=== PATIENT | female | born 1955 | race Caucasian/White ===

== ENCOUNTER 2018-02-24 06:20 | Day surgery (SDC) | payer OTHER ==
--- OUTSIDE RECORDS SUMMARY | 2018-02-24 06:24 | XMS REPORT | Clinical Summary ---
:1955 Author Organization [facility] Address [address] [place] [address] Care Team Providers Name Role Phone Franklin Cruz MD Primary Care Provider Allergies No Known Allergies Current Medications Prescription Sig. Disp. Refills Start Date End Date Status atenolol (TENORMIN) 50 Take 50 mg by Active MG tablet mouth daily. furosemide (LASIX) 20 Take 20 mg by Active mg tablet mouth daily. potassium chloride Take 3 Active (KLOR-CON M20 ORAL) capsules by mouth daily. diclofenac-misoprostol Take 1 tablet Active (ARTHROTEC 75) 75-200 by mouth 2 mg-mcg EC tablet (two) times a day. esomeprazole (NexIUM) Take 40 mg by Active 40 MG capsule mouth daily before breakfast. lisinopril Take 10 mg by Active (PRINIVIL,ZESTRIL) 10 mouth daily. mg tablet spironolactone Take 25 mg by Active (ALDACTONE) 25 MG mouth daily. tablet thyroid, pork, (ARMOUR Take 300 mg by Active THYROID) 60 mg tablet mouth every other day. 5 tabs alt days, 6 tabs alt days PARoxetine mesylate Take 20 mg by Active (PEXEVA) 20 MG tablet mouth every morning. allopurinol (ZYLOPRIM) Take 400 mg by Active 100 MG tablet mouth daily. gabapentin (NEURONTIN) Take 300 mg by Active 300 mg capsule mouth 3 (three) times a day. cholecalciferol, Take 1 tablet Active vitamin D3, (VITAMIN by mouth D3) 5,000 unit tablet daily. chlorpheniramine Take 4 mg by Active (CHLOR-TRIMETON) 4 mg mouth every 6 tablet (six) hours as needed for allergies. traMADol (ULTRAM) 50 mg Take 50-100 mg 09/29/2017 Active tablet by mouth 3 (three) times a day. thyroid, pork, (ARMOUR Take 360 mg by Active THYROID) 60 mg tablet mouth every other day. traMADol ER (ULTRAM-ER) Take 100 mg by 12/29/2017 Discontinued 100 mg 24 hr tablet mouth daily. Active Problems Not on file Encounters Date Type Specialty Care Team Description 12/29/2017 Hospital Encounter General Surgery Miggins, Right breast cancer Makesha Vernee, with malignant cells MD in regional lymph nodes no greater than 0.2 mm and no more than 200 cells 12/29/2017 Hospital Encounter Radiology Miggins, Right breast cancer Makesha Vernee, with malignant cells MD in regional lymph nodes no greater than 0.2 mm and no more than 200 cells 12/29/2017 Procedure Pass General Surgery 12/29/2017 Surgery General Surgery Miggins, RIGHT SEED LOCALIZED Corinna Bee SEGMENTAL MASTECTOMY, INTRAOPERATIVE LYMPHATIC MAPPING AND SENTINEL LYMPH NODE BIOPSY 12/25/2017 Anesthesia Event 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 12/24/2017 Pre-Admit Testing Pre-Admission Lena, Preop testing (Primary Appointment Testing Sariah Al) 12/24/2017 Hospital Encounter Radiology Lena Malignant neoplasm of Makesha Vernee, right female breast, unspecified estrogen receptor status, unspecified site of breast 12/24/2017 Hospital Encounter Radiology Lena Malignant neoplasm of Makesha Vernee, right female breast, unspecified estrogen receptor status, unspecified site of breast 12/23/2017 Hospital Encounter Corinna Santana MD 12/23/2017 Hospital Encounter Corinna Santana MD 12/23/2017 Hospital Encounter Corinna Santana MD 12/23/2017 Transcribe Orders Radiology Lena Malignant neoplasm of Makesha Vernee, right female breast, unspecified estrogen receptor status, unspecified site of breast (Primary Dx) 12/23/2017 Ancillary Orders Corinna Santana MD 12/22/2017 Transcribe Orders Access Miggins, Right breast cancer Jarvisha Vernee, with malignant cells MD in regional lymph nodes no greater than 0.2 mm and no more than 200 cells (Primary Dx) after 02/23/2017 Family History Medical History Relation Name Comments Cancer Father Diabetes Father Heart disease Father Hypertension Father Cancer Mother Dementia Mother Hypertension Mother Relation Name Status Comments Father Alive Mother Alive Social History Tobacco Use Types Packs/Day Years Used Date Former Smoker Cigarettes 1 10 Quit: 1980 Smokeless Tobacco: Never Used Alcohol Use Drinks/Week oz/Week Comments Yes social Sex Assigned at Date Recorded Not on file Last Filed Vital Signs Vital Sign Reading Time Taken Blood Pressure 121/59 12/29/2017 12:30 PM CDT Pulse 72 12/29/2017 12:30 PM CDT Temperature 36.6 C (97.9 F) 12/29/2017 12:02 PM CDT Respiratory Rate 16 12/29/2017 12:30 PM CDT Oxygen Saturation 95% 12/29/2017 12:30 PM CDT Inhaled Oxygen Concentration - - Weight 145 kg (320 lb) 12/24/2017 5:17 PM CDT Height 158.8 cm (5' 2.5") 12/24/2017 5:17 PM CDT Body Mass Index 57.6 12/24/2017 5:17 PM CDT Plan of Treatment Health Maintenance Due Date Last Done Comments CERVICAL CANCER SCREENING 1977 COLON CANCER SCREENING 2006 SHINGRIX VACCINE (#1) 2006 ZOSTER VACCINE 2016 INFLUENZA VACCINE 12/31/2017 BREAST CANCER SCREENING 12/25/2019 12/24/2017 Procedures Procedure Name Priority Date/Time Associated Comments Diagnosis SURGICAL PATHOLOGY Routine 12/29/2017 10:12 Results for this REQUEST AM CDT procedure are in the results section. BREAST SPECIMEN Routine 12/29/2017 9:50 Results for this AM CDT procedure are in the results section. IN AN ELECTIVE Routine 12/29/2017 9:20 ENDOTRACHEAL AIRWAY AM CDT Procedure Note - Katia Velasco MD - 12/29/2017 9:20 AM CDT Airway Date/Time: 12/29/2017 8:57 AM Performed by: KATIA VELASCO Authorized by: KATIA VELASCO Location: OR Urgency: Elective Difficult Airway: No Anesthesiologist: KATIA VELASCO Performed by: anesthesiologist Preoxygenated with 100% O2: Yes C-spine Precautions Maintained Throughout: Yes Mask Ventilation: Easy mask Final Airway Type: Endotracheal airway Final Endotracheal Airway: ETT Cuffed: Yes Technique Used: Direct laryngoscopy Insertion Site: Oral Blade Type: Vic Laryngoscope Blade/Videolaryngoscope Blade Size: 4 ETT Size (mm): 7.0 Cuff at minimum occlusion pressure: Yes Measured from: Lips ETT to Lips (cm): 22 Placement Verified by: CO2 detection and direct visualization Laryngoscopic view: Grade I - full view of glottis Rapid Sequence Induction (RSI): No Modified RSI: No Number of Attempts at Approach: 1 Troop pillow used for positioning POC GLUCOSE Routine 12/29/2017 8:36 Results for this AM CDT procedure are in the results section. NM INJECTION LYMPHOSEEK Routine 12/29/2017 8:16 Right breast cancer Results for this AM CDT with malignant procedure are in cells in regional the results lymph nodes no section. greater than 0.2 mm and no more than 200 cells ECG 12-LEAD Routine 12/24/2017 6:00 Preop testing Results for this PM CDT procedure are in the results section. ZZESTIMATED GFR Routine 12/24/2017 5:50 Results for this PM CDT procedure are in the results section. PROTHROMBIN TIME WITH Routine 12/24/2017 5:50 Preop testing Results for this INR PM CDT procedure are in the results section. PARTIAL THROMBOPLASTIN Routine 12/24/2017 5:50 Preop testing Results for this TIME (PTT) PM CDT procedure are in the results section. COMPREHENSIVE METABOLIC Routine 12/24/2017 5:50 Preop testing Results for this PANEL PM CDT procedure are in the results section. HC COMPLETE BLD COUNT Routine 12/24/2017 5:50 Preop testing Results for this W/AUTO DIFF PM CDT procedure are in the results section. MAMMO DIAGNOSTIC W CAD Routine 12/24/2017 3:49 Malignant neoplasm Results for this RIGHT PM CDT of right female procedure are in breast, unspecified the results estrogen receptor section. status, unspecified site of breast US BREAST LOCALIZATION Routine 12/24/2017 3:36 Malignant neoplasm Results for this RIGHT PM CDT of right female procedure are in breast, unspecified the results estrogen receptor section. status, unspecified site of breast after 02/23/2017 Results Surgical pathology request (12/29/2017 10:12 AM) [facility] DEPARTMENT OF PATHOLOGY AND GENOMIC MEDICINE Surgical pathology report See link below for PDF [facility] DEPARTMENT OF Lab Report PATHOLOGY AND GENOMIC MEDICINE Result status This is Final Report to [facility] DEPARTMENT OF [id number] PATHOLOGY AND GENOMIC MEDICINE Performing Organization Address City/State/Zipcode Phone Number [facility] DEPARTMENT OF PATHOLOGY [address] [place] [address] AND [facility] MEDICINE Breast Specimen (12/29/2017 9:50 AM) Narrative Performed At EXAMINATION:BREAST SPECIMEN [facility] IMPRESSION: Intra-operative digital Faxitron breast specimen radiography was obtained following [employer] localization and excision. The specimen radiograph demonstrates the [employer] reflector, biopsy clip, and targeted mass. Findings were relayed to Dr. Paredes in the operating room. [id number] Performing Organization Address City/State/Zipcode Phone Number [facility] [address] [place] [address] POC glucose (12/29/2017 8:36 AM) POC glucose 107 (H) 65 - 99 mg/dL [facility] DEPARTMENT OF PATHOLOGY AND Comment: GENOMIC MEDICINE Meter ID: [id number] Bowling Ball Molder: Sang Spain Performing Organization Address City/State/Zipcode Phone Number [facility] DEPARTMENT OF PATHOLOGY [address] [place] [address] AND [facility] MEDICINE NM Inject Lymphoseek (12/29/2017 8:16 AM) Narrative Performed At Procedure:NM INJECTION LYMPHOSEEK [facility] Clinical History:C50.911 Malignant neoplasm of unspecified site of right female breast, RIGHT BREAST CANCER Technique: 1 mCi of [id number] (Lymphoseek) was injected intradermally in the right breast. No imaging was performed, as per physician request. Impression: Tracer was injected into the breast in preparation for sentinel lymph node surgery. [facility]-[id number] Procedure Note Interface, Radiology Results Incoming - 12/29/2017 10:09 AM CDT Procedure: NM INJECTION LYMPHOSEEK Clinical History: C50.911 Malignant neoplasm of unspecified site of right female breast, RIGHT BREAST CANCER Technique: 1 mCi of [id number] (Lymphoseek) was injected intradermally in the right breast. No imaging was performed, as per physician request. Impression: Tracer was injected into the breast in preparation for sentinel lymph node surgery. [facility]-[id number] Performing Organization Address City/[facility]/Zipcode Phone Number [facility] [address] [place] [address] ECG 12 lead (12/24/2017 6:00 PM) Ventricular rate 68 [facility] Atrial rate 68 [facility] IN interval 124 [facility] QRSD interval 84 [facility] QT interval 390 [facility] QTC interval 414 [facility] P axis 1 41 [facility] QRS axis 1 42 [facility] T wave axis 54 [facility] EKG impression Normal sinus rhythm-Cannot rule out Anterior [facility] infarct , age undetermined-Abnormal ECG-No previous ECGs available- Performing Organization Address [facility] Phone Number [facility] [address] [place] [address] Estimated GFR (12/24/2017 5:50 PM) GFR Non Af Amer 46 (A) mL/min/1.73 m2 [facility] DEPARTMENT OF PATHOLOGY AND GENOMIC MEDICINE GFR Af Amer 55 (A) mL/min/1.73 m2 [facility] DEPARTMENT OF Comment: PATHOLOGY AND GENOMIC Chronic kidney disease: <60 mL/min/1.73m2 MEDICINE Kidney failure: <15 mL/min/1.73m2 The estimated GFR is calculated from the IDMS-traceable Modification of Diet in Renal Disease Equation. The accuracy of the calculation is poor when the creatinine is normal. Calculated values >90 mL/min/1.73m2 are not reported. This equation has not been validated in children (<18 years), women, the elderly (>70 years), or ethnic groups other than Caucasians and Americans. Specimen Plasma specimen Performing Organization Address City/[facility]/Zipcode Phone Number [facility] DEPARTMENT OF PATHOLOGY [address] [place] [address] AND [employer] Partial thromboplastin time, activated (12/24/2017 5:50 PM) PTT 33.3 23.0 - 36.0 sec [facility] DEPARTMENT OF Comment: PATHOLOGY AND GENOMIC PTT therapeutic range for unfractionated heparin is MEDICINE 61.0-112.0 seconds which corresponds to Anti-Xa 0.3-0.7 U/ml. Specimen Blood Performing Organization Address City/State/Zipcode Phone Number [facility] DEPARTMENT OF PATHOLOGY [address] [place], [place] [address] [place] [address] [facility] Prothrombin time with INR (12/24/2017 5:50 PM) Prothrombin time 14.2 12.0 - 15.0 sec [facility] DEPARTMENT OF PATHOLOGY AND GENOMIC MEDICINE INR 1.1 [facility] DEPARTMENT OF Comment: PATHOLOGY AND GENOMIC The International Normalized Ratio (INR) is a therapeutic MEDICINE monitoring tool for patients who are stable on oral anticoagulant therapy. An INR of 2.0-3.0 is suggested for deep vein thrombosis/pulmonary embolism. Specimen Blood Performing Organization Address [facility]ode Phone Number [facility] OF PATHOLOGY [address] [place], [place] [phone] [place] [address] CBC with platelet and differential (12/24/2017 5:50 PM) WBC 7.9 4.5 - 11.0 k/uL [facility] DEPARTMENT OF PATHOLOGY AND GENOMIC MEDICINE RBC 3.18 (L) 4.20 - 5.50 m/uL [facility] DEPARTMENT OF PATHOLOGY AND GENOMIC MEDICINE HGB 9.8 (L) 12.0 - 16.0 g/dL [facility] DEPARTMENT OF PATHOLOGY AND GENOMIC MEDICINE HCT 31.3 (L) 37.0 - 47.0 % [facility] DEPARTMENT OF PATHOLOGY AND GENOMIC MEDICINE MCV 98.4 82.0 - 100.0 fL [facility] DEPARTMENT OF PATHOLOGY AND GENOMIC MEDICINE MCH 30.8 27.0 - 34.0 pg [facility] DEPARTMENT OF PATHOLOGY AND GENOMIC MEDICINE MCHC 31.3 31.0 - 37.0 g/dL [facility] DEPARTMENT OF PATHOLOGY AND GENOMIC MEDICINE RDW - SD 53.0 37.0 - 55.0 fL [facility] DEPARTMENT OF PATHOLOGY AND GENOMIC MEDICINE MPV 10.4 6.9 - 11.0 fL [facility] DEPARTMENT OF PATHOLOGY AND GENOMIC MEDICINE Platelet count 236 150 - 400 K/uL [facility] DEPARTMENT OF PATHOLOGY AND GENOMIC MEDICINE Nucleated RBC 0.00 /100 WBC [facility] DEPARTMENT OF PATHOLOGY AND GENOMIC MEDICINE Neutrophils 70.4 (H) 39.0 - 69.0 % [facility] DEPARTMENT OF PATHOLOGY AND GENOMIC MEDICINE Lymphocytes 21.6 (L) 25.0 - 45.0 % [facility] DEPARTMENT OF PATHOLOGY AND GENOMIC MEDICINE Monocytes 5.3 0.0 - 10.0 % [facility] DEPARTMENT OF PATHOLOGY AND GENOMIC MEDICINE Eosinophils 1.3 0.0 - 5.0 % [facility] DEPARTMENT OF PATHOLOGY AND GENOMIC MEDICINE Basophils 0.1 0.0 - 1.0 % [facility] DEPARTMENT OF PATHOLOGY AND GENOMIC MEDICINE Immature granulocytes 1.3 (H) 0.0 - 1.0 % [facility] DEPARTMENT OF PATHOLOGY AND GENOMIC MEDICINE Specimen Blood Performing Organization Address [facility]oks Phone Number [facility] DEPARTMENT OF PATHOLOGY [address] [place] [address] AND [place] Comprehensive metabolic panel (12/24/2017 5:50 PM) Sodium 141 135 - 148 mEq/L [facility] DEPARTMENT OF PATHOLOGY AND GENOMIC MEDICINE Potassium 4.8 3.5 - 5.0 mEq/L [facility] DEPARTMENT OF PATHOLOGY AND GENOMIC MEDICINE Chloride 102 98 - 112 mEq/L [facility] DEPARTMENT OF PATHOLOGY AND GENOMIC MEDICINE CO2 26 24 - 31 mEq/L [facility] DEPARTMENT OF PATHOLOGY AND GENOMIC MEDICINE Anion gap 13@ANIO 7 - 15 mEq/L [facility] DEPARTMENT OF PATHOLOGY AND GENOMIC MEDICINE BUN 25 (H) 8 - 23 mg/dL [facility] DEPARTMENT OF PATHOLOGY AND GENOMIC MEDICINE Creatinine 1.2 (H) 0.5 - 0.9 mg/dL [facility] DEPARTMENT OF PATHOLOGY AND GENOMIC MEDICINE Glucose 87 65 - 99 mg/dL [facility] DEPARTMENT OF PATHOLOGY AND GENOMIC MEDICINE Calcium 9.1 8.8 - 10.2 mg/dL [facility] DEPARTMENT OF PATHOLOGY AND GENOMIC MEDICINE Protein 7.0 6.3 - 8.3 g/dL [facility] DEPARTMENT OF PATHOLOGY AND GENOMIC MEDICINE Albumin 4.0 3.5 - 5.0 g/dL [facility] DEPARTMENT OF PATHOLOGY AND GENOMIC MEDICINE A/G ratio 1.3 0.7 - 3.8 [facility] DE[facility]MENT OF PATHOLOGY AND GENOMIC MEDICINE Alkaline phosphatase 124 (H) 35 - 104 U/L [facility] DEPARTMENT OF PATHOLOGY AND GENOMIC MEDICINE AST 17 10 - 35 U/L [facility] DEPARTMENT OF PATHOLOGY AND GENOMIC MEDICINE ALT 14 5 - 50 U/L [facility] DEPARTMENT OF PATHOLOGY AND GENOMIC MEDICINE Total bilirubin 0.4 0.2 - 1.2 mg/dL [facility] DEPARTMENT OF PATHOLOGY AND GENOMIC MEDICINE Specimen Plasma specimen Performing Organization Address City/[facility]ode Phone Number [facility] DEPARTMENT OF PATHOLOGY [address] [place] [id number] AND [employer] MEDICINE Mammo Diagnostic w Cad Right (12/24/2017 3:49 PM) Narrative Performed At PROCEDURE: MAMMO DIAGNOSTIC W CAD RIGHT, US BREAST LOCALIZATION RIGHT HM [facility] HISTORY:62-year-old patient with known primary malignancy in the right breast here for ultrasound-guided needle localization prior to excision. CONSENT:Informed consent for ultrasound guided needle localization of the right breast was obtained following a detailed discussion of the procedure, alternatives, risks, and complications including hemorrhage and infection. TECHNIQUE:A time out was performed by the team prior to the procedure to verify the patient identity and lesion site(s). FINDINGS:Under ultrasound guidance the known primary malignancy in the upper outer right breast was targeted. The ultrasound guided needle localization was performed with a 7.5 cm length [employer] needle set under the usual aseptic conditions and 1% lidocaine local anesthetic. Positioning was confirmed sonographically and the reflector successfully deployed. Reflector function was confirmed with the hand piece. The patient tolerated the procedure well without complications. Post localization mammogram demonstrates satisfactory position of the reflector within the mass and adjacent to the biopsy clip. RECOMMENDATION / IMPRESSION:Technically successful ultrasound guided needle localization of the right breast. Recommend post excision specimen radiograph. [id number] Performing Organization Address City/[facility] Phone Number [facility] [address] [place] [address] US Breast Localization Right (12/24/2017 3:36 PM) Narrative Performed At PROCEDURE: MAMMO DIAGNOSTIC W CAD RIGHT, US BREAST LOCALIZATION RIGHT [facility] HISTORY:62-year-old patient with known primary malignancy in the right breast here for ultrasound-guided needle localization prior to excision. CONSENT:Informed consent for ultrasound guided needle localization of the right breast was obtained following a detailed discussion of the procedure, alternatives, risks, and complications including hemorrhage and infection. TECHNIQUE:A time out was performed by the team prior to the procedure to verify the patient identity and lesion site(s). FINDINGS:Under ultrasound guidance the known primary malignancy in the upper outer right breast was targeted. The ultrasound guided needle localization was performed with a 7.5 cm length [employer] needle set under the usual aseptic conditions and 1% lidocaine local anesthetic. Positioning was confirmed sonographically and the reflector successfully deployed. Reflector function was confirmed with the hand piece. The patient tolerated the procedure well without complications. Post localization mammogram demonstrates satisfactory position of the reflector within the mass and adjacent to the biopsy clip. RECOMMENDATION / IMPRESSION:Technically successful ultrasound guided needle localization of the right breast. Recommend post excision specimen radiograph. [id number] Performing Organization Address City/[facility] Phone Number [facility] [address] [place] [address] after 02/23/2017 Insurance Payer Benefit Plan / Group Subscriber ID Type Phone Address [employer] [place] HMO,POS,EPO, MC/EC xxxxxxxxxx HMO Work: [id number] [phone] Home: [id number]
[2018-02-24] MEDS ORDERED: Ringers Lactate 1,000 ML IV ONE (06:44)
[2018-02-24] MEDS ORDERED: PROPOFOL 200 MG/20 ML VIAL IV ONE ×2 (07:36)
[2018-02-24] MEDS ORDERED: LIDOCAINE 1% MPF 2 ML AMPULE ONE (07:37)
[2018-02-24] MEDS ORDERED: MIDAZOLAM HCL 2 MG/2 ML INJ ONE (07:45)
--- NOTE | 2018-02-24 08:19 | ENDO RPT ---
[address], [address] EGD PROCEDURE REPORT EXAM DATE: 02/24/2018 PATIENT NAME: Ritu West MR#: [id number] BIRTHDATE: 1955 ATTENDING: Austen [address]er [address] STATUS: outpatient SENIOR FRONT END WEB DEVELOPER: Debbie Bright and Nieves Davis RN INDICATIONS: The patient is a 62 yr old Female here for an EGD due to iron deficiency anemia, dyspepsia, and belching PROCEDURE PERFORMED: EGD with biopsy MEDICATIONS: Per Anesthesia. TOPICAL ANESTHETIC: none CONSENT: The patient understands the risks and benefits of the procedure and understands that these risks include, but are not limited to: sedation, allergic reaction, infection, perforation and/or bleeding. Alternative means of evaluation and treatment include, among others: physical exam, x-rays, and/or surgical intervention. The patient elects to proceed with this endoscopic procedure. DESCRIPTION OF PROCEDURE: During intra-op preparation period all mechanical medical equipment was checked for proper function. Hand hygiene and appropriate measures for infection prevention was taken. Procedure, possible complications, and alternatives including but not limited to the possibility of bleeding, perforation, tear, infection, sepsis, need for surgery, need for blood transfusion, and anesthesia related complications were explained to the patient. After the risks, benefits and alternatives of the procedure were thoroughly explained, Informed consent was verified, confirmed and timeout was successfully executed by the treatment team. The patient was placed in the left lateral position. The patient was anesthetized with topical anesthesia. Through the anesthetized oropharyngeal area, the scope was passed without any difficulty. The [id number] ([id number]) endoscope was introduced through the mouth and advanced to the second portion of the duodenum. Retroflexed views revealed a small hiatal hernia. The gastroscope was then slowly withdrawn and removed. Few 2-7 mm pedunculated / sessile polyps were found in the body of the stomach. With jumbo forceps, a biopsy was obtained and sent to pathology. Mild gastritis was found in the antrum. Multiple biopsies were obtained and sent to pathology. Small bowel biopsies obtained with history of iron deficiency anemia. ADVERSE EVENTS: There were no complications. IMPRESSIONS: 1. Few 2-7 mm pedunculated / sessile polyps in the body of the stomach, s/p biopsy 2. Mild gastritis in the antrum, s/p biopsies 3. Small bowel biopsies obtained with history of iron deficiency anemia RECOMMENDATIONS: 1. await biopsy results 2. acid suppression therapy REPEAT EXAM: Austen Soler Dr eSigned: Austen Soler Dr 02/24/2018 8:08 AM cc: Franklin Cruz CPT CODES: ICD9 CODES: PATIENT NAME: Ritu West MR#: [id number]
--- NOTE | 2018-02-24 08:29 | ENDO RPT ---
[address], [address] COLONOSCOPY PROCEDURE REPORT EXAM DATE: 02/24/2018 PATIENT NAME: Ritu West MR #: [id number] BIRTHDATE: 1955 ATTENDING: Austen Soler [address] STATUS: outpatient HAND SIGN WRITER: Debbie Bright and Nieves Davis RN INDICATIONS: The patient is a 62 yr old Female here for a colonoscopy due to iron deficiency anemia and personal history of colon polyps PROCEDURE PERFORMED: Colonoscopy with biopsy - cold polypectomy MEDICATIONS: Per Anesthesia. ESTIMATED BLOOD LOSS: None CONSENT: The patient understands the risks and benefits of the procedure and understands that these risks include, but are not limited to: sedation, allergic reaction, infection, perforation and/or bleeding. Alternative means of evaluation and treatment include, among others: physical exam, x-rays, and/or surgical intervention. The patient elects to proceed with this endoscopic procedure. DESCRIPTION OF PROCEDURE: During intra-op preparation period all mechanical medical equipment was checked for proper function. Hand hygiene and appropriate measures for infection prevention was taken. Procedure, possible complications, alternatives including, but not limited to possibility of bleeding, perforation, tear, infection, sepsis, need for surgery, need for blood transfusion, were explained to the patient. After the risks, benefits and alternatives of the procedure were thoroughly explained, Informed consent was verified, confirmed and timeout was successfully executed by the treatment team. The patient was placed in the left lateral position. A digital rectal exam was performed and revealed no abnormalities of the rectum. After appropriate level of anesthesia, the scope was passed. The EC-[id number] ([id number]) endoscope was introduced through the anus and advanced to the terminal ileum which was intubated for a short distance. The quality of the prep was good. The instrument was then slowly withdrawn as the colon was fully examined. Scope withdrawal time was 7 minutes. COLON FINDINGS: A smooth flat polyp measuring 4 mm in size was found at the cecum. A polypectomy was performed with cold forceps. Small internal hemorrhoids were found. Retroflexed views revealed small hemorrhoids. The scope was then completely withdrawn from the patient and the procedure terminated. ADVERSE EVENTS: There were no complications. IMPRESSIONS: 1. 4 mm flat polyp at the cecum; polypectomy was performed with cold forceps 2. Small internal hemorrhoids 3. Intubation to terminal ileum RECOMMENDATIONS: 1. await biopsy results 2. avoid NSAIDS for 2 weeks RECALL: Return in 3 year(s) for Colonoscopy. Austen Soler Dr eSigned: Austen Soler Dr 02/24/2018 8:29 AM cc: Franklin Cruz CPT CODES: ICD9 CODES: 211.3 Benign neoplasm of colon PATIENT NAME: Ritu West MR#: [id number]
[2018-02-24 09:33] LABS: Urine Appearance CLEAR; Urine Bilirubin NEGATIVE (NEG); Urine Blood NEGATIVE (NEG); Urine Color YELLOW; Urine Glucose NEGATIVE (NEG); Urine Protein NEGATIVE (NEG); Urine Specific Gravity 1.025 (1.005-1.030); Urine Urobilinogen 0.2 mg/dL (0.2-1.0)
[2018-02-24 09:51] LABS: Urine Microscopic Reflex NO UMIC
--- NOTE | 2018-02-24 11:23 | RAD REPORT ---
EXAM DESCRIPTION: RAD - Small Bowel Series - 02/24/2018 11:05 am CLINICAL HISTORY: Anemia COMPARISON: None. FINDINGS: [employer] film shows a nonspecific bowel gas pattern. No obstruction or free air. No suspiciou s calcifications. Gastric size and mucosal fold pattern are normal. No delay in transit of contrast into the small caren l. Small bowel is normal in diameter with no mucosal fold thickening. No intrinsic or extrinsic mass identifiable. Terminal ileum has normal appearance. Transit time to the colon is 20 minutes. IMPRESSION: Normal small bowel series.
== END 2018-02-24 11:00 | disposition home or self-care (01) ==
LOC: OR 06:20
PROVIDERS: ATTEND Internal Medicine Gastroenterology
PROC: 0DB88ZX Excision of Small Intestine, Via Natural or Artificial Opening Endoscopic, Diagnostic (ICD-10-PCS; 2018-02-24)
PROC: 0DBH8ZX Excision of Cecum, Via Natural or Artificial Opening Endoscopic, Diagnostic (ICD-10-PCS; principal; 2018-02-24 07:30)
PROC: 0DB68ZX Excision of Stomach, Via Natural or Artificial Opening Endoscopic, Diagnostic (ICD-10-PCS; 2018-02-24 07:30)
DX: D12.0 Benign neoplasm of cecum (principal); K31.7 Polyp of stomach and duodenum; K29.50 Unspecified chronic gastritis without bleeding; K21.9 Gastro-esophageal reflux disease without esophagitis; K64.8 Other hemorrhoids; E61.1 Iron deficiency; E03.9 Hypothyroidism, unspecified; I10 Essential (primary) hypertension; G47.33 Obstructive sleep apnea (adult) (pediatric); Z85.3 Personal history of malignant neoplasm of breast; Z87.891 Personal history of nicotine dependence
CPT/HCPCS: 74250; 81003; 88305; 88312; J2001; J2250